=== PATIENT | female | born 1985 | race African-American/Black ===

== ENCOUNTER 2020-01-08 20:54 | Inpatient (IN) | payer MEDICAID ==
[~2020-01-08 20:54] MED LIST: Bupivacaine 0.25% HCL 30 ML VIAL ONE
[2020-01-08] MEDS: Lactated Ringer's 1,000 ML IV SCH (21:12)
[2020-01-08] MEDS ORDERED: Ondansetron PF 4 MG/2 ML Vial IVP PRN (21:29)
[2020-01-08] MEDS ORDERED: Butorphanol Tartrate 1 MG/ML VIAL SLOW IVP PRN (21:29)
[2020-01-08] MEDS ORDERED: Acetaminophen 500 MG TAB PO PRN (21:29)
[2020-01-08] MEDS ORDERED: Methylergonovine 0.2 MG/ML VIAL IM PRN (21:29)
[2020-01-08] MEDS ORDERED: Carboprost 250 MCG/ML AMP IM PRN (21:29)
[2020-01-08] MEDS ORDERED: Promethazine HCl 25 MG/ML VIAL IM PRN (21:29)
[2020-01-08] MEDS ORDERED: Misoprostol 200 MCG TAB PR PRN (21:29)
[2020-01-08] MEDS ORDERED: Diphenoxylate HCl/Atropine Tablet PO PRN (21:29)
[2020-01-08] MEDS ORDERED: HYDROcodone/Acetaminophen 5/325 mg Tablet PO PRN (21:29)
[2020-01-08] MEDS ORDERED: Ibuprofen 800 MG TAB PO PRN (21:29)
[2020-01-08] MEDS ORDERED: Lidocaine 1% (PF) 30 ML VIAL SC PRN (21:29)
[2020-01-08] MEDS ORDERED: hydrALAZINE 20 MG/ML VIAL SLOW IVP PRN (21:29)
[2020-01-08 21:30] VITALS: BMI 29.0
[2020-01-08] MEDS ORDERED: NS w/ Oxytocin 10 units 500 ML IV SCH (21:30)
[2020-01-08] MEDS ORDERED: Lactated Ringer's 1,000 ML IV SCH (21:30)
--- NOTE | 2020-01-08 21:33 | PDOC.LDHP ---
Labor and Delivery H&P Chief complaint: contractions HPI: 34yo at 39w5d by LMP c/w 21w sono here with painful contractions since this afternoon. Pt was 2cm in office earlier today. No LOF VB. Current gestational age (weeks): 39 Due date: 01/10/20 Dating criteria: last menstrual period Grav: 3 Para: 2 OB History Details: hx of macrosomia, 9lb4oz baby delivered vag, no dystocia Current complications: none Abnormal US findings: No Past Medical History: denies Current medications: pre- vitamins Previous surgical history: none Allergies/Adverse Reactions: Allergies Allergy/AdvReac Type Severity Reaction Status Date / Time No Known Drug Allergies Allergy Verified 01/08/20 21:30 Social history: none - Physical Exam Vital signs reviewed and normal: yes General: NAD, breathing through contractions Heart: RRR Lungs: CTAB Abdomen: gravid Extremeties: no edema FHT: category 1 [place] contractions every: 3-4min - Vaginal Exam cm dilated: 5 Effacement: 90% Station: -1 - OB Labs Blood type: O RH: positive Antibody Screen: negative HIV: negative RPR: negative HEPSAg: negative 1 hour GCT: negative GBS: negative Rubella: immune - Assessment L&D Assessment: term patient in labor - Plan Plan: admit to L&D, labor augmentation if indicated, informed consent obtained, anesthesia consult for pain management
[2020-01-08 23:01] LABS: Hemoglobin 12.1 g/dL (12.0-16.0); Mean Corpuscular HGB CONC 34.2 g/dL (32.0-36.0); Mean Corpuscular Hemoglobin 31.3 pg (27.0-31.0); Mean Corpuscular Volume 91.7 fL (78.0-98.0); Mean Platelet Volume 8.4 fL (7.4-10.4); Platelet Count 172 thou/uL (130-400); RBC Distribution Width 14.3 % (11.5-14.5); Red Blood Cell (RBC) Count 3.87 mill/uL (4.20-5.40); White Blood Cell (WBC) Count 10.4 thou/uL (4.8-10.8)
[2020-01-08] MEDS ORDERED: Fentanyl 4 mcg/Bup 0.1% Cadd 100 ML ONE (23:03)
[2020-01-08 23:27] LABS: Syphilis Antibody Nonreactive (Nonreactive); Syphilis Antibody Index 0.04 S/CO (<1.00 Non-Reactive)
[2020-01-08 23:40] LABS: HBSAg Index 0.21 S/CO (0-0.99); Hep B Surf Ag Non-Reactive S/CO (NonReactive)
[2020-01-09] MEDS ORDERED: Lactated Ringer's 500 ML IV PRN (00:05)
[2020-01-09] MEDS ORDERED: Promethazine HCl 25 MG/ML VIAL IM PRN (00:05)
[2020-01-09] MEDS ORDERED: Naloxone HCl 0.4 mg/ml Vial IVP PRN ×2 (00:05)
[2020-01-09] MEDS ORDERED: Ondansetron PF 4 MG/2 ML Vial IVP PRN ×2 (00:05→07:41)
[2020-01-09] MEDS ORDERED: EPHEDRINE 25 MG/5 ML SYRINGE SLOW IVP PRN (00:05)
[2020-01-09] MEDS ORDERED: Acetaminophen 325 MG TAB PO PRN (00:05)
[2020-01-09] MEDS ORDERED: diphenhydrAMINE 50 MG/ML VIAL IVP PRN (00:05)
[2020-01-09] MEDS ORDERED: Fentanyl 4 mcg/Bupivacaine 0.1% Cassette 100 ML EPIDURAL SCH (00:15)
[2020-01-09] MEDS ORDERED: Communication Order-Pharmacy FS SCH (00:15)
[2020-01-09] MEDS: Lactated Ringer's 1,000 ML IV SCH (01:00)
[2020-01-09] MEDS: NS / Oxytocin 40 units/1000ml 1,000 ML IV PRN ×2 (03:57→05:15)
--- NOTE | 2020-01-09 04:41 | PDOC.OPDEL ---
OB Operative/Delivery Note Delivery Dr/Surgeon: Rafal Assist: n/a Pre-Delivery Diagnosis: active labor Procedure/Post Delivery Dx: spontaneous vaginal delivery Weeks gestation: 39 Anesthesia: epidural - Findings A Sex: male Weight: 9 lb 11 oz - 1 min: 9 - 5 min: 9 - Additional Findings/Plan Placenta delivered: spontaneous Repaired Obstetrical Laceration: 1st degree Estimated blood loss: 265cc Post delivery plan: routine recovery
[2020-01-09] MEDS ORDERED: NS / Oxytocin 40 units/1000ml 1,000 ML IV SCH (07:41)
[2020-01-09] MEDS ORDERED: hydrALAZINE 20 MG/ML VIAL SLOW IVP PRN (07:41)
[2020-01-09] MEDS ORDERED: HYDROcodone/Acetaminophen 5/325 mg Tablet PO PRN ×2 (07:41)
[2020-01-09] MEDS ORDERED: diphenhydrAMINE 25 MG CAP PO PRN (07:41)
[2020-01-09] MEDS ORDERED: Benzocaine-Menthol 82.5 ML CAN TOP PRN (07:41)
[2020-01-09] MEDS ORDERED: Milk Of Magnesia 30 ML UDCUP PO PRN (07:41)
[2020-01-09] MEDS ORDERED: Bisacodyl 10 MG SUPP PR PRN (07:41)
[2020-01-09] MEDS ORDERED: Lanolin Ointment 7 GM TUBE TOP PRN (07:41)
[2020-01-09] MEDS ORDERED: Preparation H Ointment 28 GM TUBE PR PRN (07:41)
[2020-01-09] MEDS: Ibuprofen 800 MG TAB PO SCH (16:11)
[2020-01-09] MEDS: Prenatal Vitamin 1 TAB PO SCH (16:13)
[2020-01-09] MEDS: Ferrous Sulfate 325 MG TAB PO SCH ×2 (16:13→16:16)
[2020-01-09] MEDS: Docusate Calcium (SURFAK) 240 MG CAP PO SCH ×2 (16:13→22:23)
[2020-01-10] MEDS: Ibuprofen 800 MG TAB PO SCH ×4 (04:37→15:23)
[2020-01-10] MEDS: Docusate Calcium (SURFAK) 240 MG CAP PO SCH (08:33)
[2020-01-10] MEDS: Ferrous Sulfate 325 MG TAB PO SCH ×2 (08:33→18:31)
[2020-01-10] MEDS: Prenatal Vitamin 1 TAB PO SCH (08:33)
[2020-01-10] MEDS ORDERED: Adacel (T-DAP) 0.5 ML SYRINGE IM ONE (09:00)
[2020-01-10 09:46] VITALS: BP 102/56; TEMP 99.2
== END 2020-01-10 18:20 | disposition home or self-care (01) | DRG 807 ==
LOC: L&D/OP 20:54 → L&D 23:17 → 3SW 01-09 15:16
PROVIDERS: ADMIT Family Medicine; ATTEND Family Medicine
PROC: 10E0XZZ Delivery of Products of Conception, External Approach (ICD-10-PCS; principal; 2020-01-09)
PROC: 0HQ9XZZ Repair Perineum Skin, External Approach (ICD-10-PCS; 2020-01-09)
PROC: 10907ZC Drainage of Amniotic Fluid, Therapeutic from Products of Conception, Via Natural or Artificial Opening (ICD-10-PCS; 2020-01-09)
DX: O70.0 First degree perineal laceration during delivery (principal); Z37.0 Single live birth; Z3A.39 39 weeks gestation of pregnancy
CPT/HCPCS: 36415; 51702; 85027; 86780; 86850; 86900; 86901; 87340; 99285; J0595; S0020